=== PATIENT | female | born 1965 | race Caucasian/White ===

== ENCOUNTER 2018-09-23 12:40 | Emergency (ER) | payer BC ==
[~2018-09-23 12:40] MED LIST: Sterile Water Irrigation 250 ML BOT ONE
[2018-09-23] MEDS ORDERED: Adacel (T-DAP) 0.5 ML SYRINGE ONE (13:16)
--- NOTE | 2018-09-23 13:19 | CT ---
EXAM: CT brain without contrast HISTORY: Fall with head trauma COMPARISON: None TECHNIQUE: Multiple contiguous axial images were obtained and a CT of the brain without contrast. Sag ittal and coronal reformats were performed FINDINGS: The brain is normal in morphology and attenuation without focal lesions or confluent areas of infarction. There is no evidence of hydrocephalus, intracranial hemorrhage, or extra-axial fluid collection. A laceration is seen in the right forehead. The calvarium and overlying soft tissues are otherwise un remarkable. The visualized paranasal sinuses and mastoid air cells are well aerated. IMPRESSION: No evidence of acute intracranial abnormality
--- NOTE | 2018-09-23 13:22 | CT ---
CT CERVICAL SPINE NONCONTRAST: DATE: 09/23/2018 HISTORY: cervical trauma FINDINGS: There are no jumped or perched facets. There is no evidence of acute fracture. The vertebral body hei ghts are maintained. There is no prevertebral soft tissue swelling. IMPRESSION: No evidence of acute fracture or acute traumatic subluxation.
[2018-09-23] MEDS ORDERED: Ondansetron ODT 4 MG TAB ONE (13:40)
[2018-09-23] MEDS ORDERED: Lidocaine 1% w/Epinephrine 1:100K 20 ML VIAL ONE (13:43)
[2018-09-23] MEDS ORDERED: Lidocaine 2% w/Epinephrine 1:200K 20 ML VIAL ONE (13:43)
== END 2018-09-23 14:55 | disposition home or self-care (01) ==
LOC: MADERS 12:40
DX: S01.111A Laceration without foreign body of right eyelid and periocular area, initial encounter (principal); Z23 Encounter for immunization; Z79.899 Other long term (current) drug therapy; W18.30XA Fall on same level, unspecified, initial encounter
CPT/HCPCS: 12013; 70450; 72125; 90471; 90715; J2001; Q0162

== ENCOUNTER 2018-12-30 18:49 | Emergency (ER) | payer BC, OTHER ==
[2018-12-30] MEDS ORDERED: Ibuprofen 800 MG TAB ONE (19:01)
--- NOTE | 2018-12-30 19:31 | CT ---
CT CERVICAL SPINE NONCONTRAST: DATE: 12/30/2018 HISTORY: cervical trauma FINDINGS: There are no jumped or perched facets. There is no evidence of acute fracture. The vertebral body hei ghts are maintained. There is no prevertebral soft tissue swelling. IMPRESSION: No evidence of acute fracture or acute traumatic subluxation.
[2018-12-30] MEDS ORDERED: Cyclobenzaprine 10 MG TAB ONE (19:39)
== END 2018-12-30 19:45 | disposition home or self-care (01) ==
LOC: MADERS 18:49
DX: S16.1XXA Strain of muscle, fascia and tendon at neck level, initial encounter (principal); S39.012A Strain of muscle, fascia and tendon of lower back, initial encounter; S29.012A Strain of muscle and tendon of back wall of thorax, initial encounter; V89.2XXA Person injured in unspecified motor-vehicle accident, traffic, initial encounter
CPT/HCPCS: 72125